=== PATIENT | male | born 1950 | race Caucasian/White ===

== ENCOUNTER 2017-11-27 10:40 | Emergency (ER) | payer OTHER ==
--- NOTE | 2017-11-27 11:04 | EDPHY ---
HPI/HX/ROS/PE/MDM Narrative: CHIEF COMPLAINT: Irregular heart rate HISTORY OF PRESENT ILLNESS: The patient is a 67 y/o male arriving at the referral of his doctor for possible irregular heart rate. On Thursday night he couldn't urinate and developed a fever. Symptoms felt like prior episodes of prostatitis so he went to his urologist for evaluation. He was diagnosed with a bladder infection and discharged on ciprofloxacin. His fever and urinary symptoms improved. He has not received urine culture results yet. He returned to his urologist for follow up today and his doctor noticed his pulse seemed irregular and sent him here for evaluation. The patient has not sensed palpitations, chest pain, dyspnea, or other symptoms apart from his UTI. He notes he had a normal stress test several years ago with Dr. Hinkle and skis and cycles vigorously regularly. He does note he had some difficulty catching his breath while skiing "30,000 feet" on Thursday. No fever, chills, chest pain, shortness of breath, palpitations, abdominal pain , nausea, vomiting, diarrhea, hematuria, headache, lightheadedness. REVIEW OF SYSTEMS: Aside from elements discussed in the HPI, a comprehensive 10-point review of systems was reviewed and is negative. 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 . VITAL SIGNS: Reviewed by me GENERAL: Well-developed, well-nourished, resting comfortably in no respiratory distress. HEENT: Atraumatic. Eyes: No icterus, no injection. Mouth: moist mucous membranes. No erythema or lesions. Neck: supple with no adenopathy. LUNGS: Clear to auscultation bilaterally, no wheezes, rhonchi or rales. CARDIAC: Irregular rate and rhythm, no rubs, murmurs or gallops. ABDOMEN: Soft, nontender, nondistended, bowel sounds normal. BACK: No CVA tenderness. EXTREMITIES: No trauma. No edema. Range of motion is normal throughout. NEURO: Alert and oriented, grossly nonfocal. SKIN: Warm and mildly diaphoretic on back, no rash. PSYCHIATRIC: Normal mentation, no agitation. Portions of this note were transcribed by a medical i d sales. I personally performed a history, physical exam, medical decision making, and confirmed accuracy of information the transcribed note. ED Course: This is a normally healthy 67 y/o male with recent diagnosis of UTI who presents for evaluation after his PCP noticed an irregular pulse at a follow-up visit today. The patient has not noticed palpitations, chest pain, dyspnea, or other cardiac symptoms. He has an irregular heart rate on exam, but is generally well-appearing. Plan for IV, labs, EKG, chest x-ray. 1L IV NS ordered. The 12 lead EKG was interpreted by myself. Sinus rhythm with PVCs and supraventricular complexes, rate 73. See hard copy and/or "tracemaster" electronic copy for interpretation. 1224: Consulted with Dr. Ford, cardiology. Dr. Hinkle will evaluate patient in the ED. Dr. Hinkle evaluated patient in the emergency department and reviewed the patient's labs and EKG. Patient and Dr. Hinkle have agreed a plan for outpatient Holter monitor and stress test with his office. Patient has been given exercise restrictions while on Cipro. Strict return precautions given. He is comfortable with plan for discharge and follow up. MDM: Differential diagnoses for the patient's irregular heart rate was considered including but not limited to multifocal atrial tachycardia, PACs, PVCs, SVT, atrial fibrillation, atrial flutter, anxiety, panic attack. - Data Points Imaging: I viewed and interpreted images myself Laboratory Results: Laboratory Results 11/27/17 11:07 11/27/17 11:07 Medications Given: Discontinued Medications Sodium Chloride (Ns) 1,000 mls @ 0 mls/hr IV EDNOW ONE; Wide Open PRN Reason: Protocol Stop: 11/27/17 11:13 Last Admin: 11/27/17 11:34 Dose: 1,000 mls General Time Seen by Provider: 11/27/17 10:51 Initial Vital Signs: Initial Vital Signs Temperature (C) 36.3 C 11/27/17 10:44 Heart Rate 104 H 11/27/17 10:44 Respiratory Rate 19 11/27/17 10:44 Blood Pressure 132/80 H 11/27/17 10:44 O2 Sat (%) 96 11/27/17 10:44 O2 Delivery Mode Room Air Allergies/Adverse Reactions: No Known Allergies Allergy (Unverified 03/18/11 20:01) Home Medications: Medication Instructions Recorded Levothyroxine Sodium [Synthroid] 25 mcg PO DAILY 03/18/11 Cipro 11/27/17 Hydrocodone/APAP 5/325 [[place] 1 - 2 tab PO Q4-6PRN PRN 11/27/17 5/325] Departure - Departure Disposition: Home, Routine, Self-Care Clinical Impression: PVC (premature ventricular contraction), Irregular heart rate Condition: Good Instructions: Urinary Tract Infection in Men (ED) Additional Instructions: Follow up with Dr. Hinkle for Holter monitor and stress test. Please call his office if you do not hear from his nurse today. Follow exercise restrictions provided while on ciprofloxacin. Return to the ED for any worsening of condition. Referrals: Inderjit Rodriguez MD [Primary Care Provider] - As per Instructions Hong Hinkle MD [Medical Doctor] - As per Instructions Report Scribed for: Any Reyes Report Scribed by: Nithya Rocha Date of Report: 11/27/17 Time of Report: 11:09
--- NOTE | 2017-11-27 11:09 | CPEKG ---
Heart Rate: 73 RR Interval: 822 P-R Interval: 232 QRSD Interval: 92 QT Interval: 424 QTC Interval: 468 P [place]: -1 QRS [place]: -6 T Wave [place]: 44 EKG Severity - ABNORMAL ECG - EKG Impression: SINUS RHYTHM EKG Impression: FIRST DEGREE AV BLOCK EKG Impression: ANTERIOR INFARCT, OLD Electronically Signed By: Any Reyes 27-Nov-2017 16:17:34
[2017-11-27] MEDS ORDERED: NS 1,000 ML IV ONE (11:12)
[2017-11-27 11:16] LABS: PLATELET COUNT 301 10^3/uL (150-400)
--- NOTE | 2017-11-27 13:07 | PDCONSULT ---
Material Cutter Note: Chief Complaint: Chest pain HPI: The patient is a 67-year-old male with a history of a PFO. Yakov was told to go to the ED by his urologist's office because of irregular beats seen on his EKG. Yakov was originally seen for urinary tract infection vs prostatitis. He returned to his urologist for follow up and was found to have an irregular rhythm. Yakov is very active, he cycles frequently and skies. He does note some dyspnea on exertion while skiing with his brother this past weekend. Yakov is otherwise asymptomatic from a cardiac standpoint. He denies palpitations, chest pain, rapid heart rate, near syncope or syncope. Past Medical History: Hypothyroidism, PFO, prostatitis Social History: . Lives in [place]. Cycles frequently. ROS 10 point review of systems is otherwise normal except as listed in HPI. Physical examination VS Blood pressure is 131/94 with heart rate of 86 BPM resp 16 o2 sat was 96% on room Air GEN: anxious alert cooperative HEENT: anicteric PERRL with EOMI Neck no lymphadenopathy or thyromegaly, no bruit carotid pulses normal Heart: Irregular rhythm, murmur present Lungs CTA bilaterally no wheeze rales or rhonchi Abd: Positive bowel sounds non distended not tender no rebound or guarding Ext cool dry wand well perfused no peripheral edema Labs: His urine cultures are pending. EKG: Inferior Q waves, poor R wave progression. Frequent PACs and PVCs. IMP/Plan: Yakov presented to the ED with irregular rhythm. His EKG shows inferior Q waves , poor R wave progression, frequent PACs and PVCs. I am not sure what to make of this since he is asymptomatic and appears to have a current UTI if not prostatitis. His troponin is normal and there is no acute ischemia or injury pattern. I think it is safe for him to be discharged. He is currently on Ciprofloxacin and his fever and urinary symptoms have improved. I would like the patient to have an outpatient nuclear stress test and a 24 hour Holter monitor because of his baseline EKG abnormalities. I would like him to have the stress test performed after his bladder infection has improved and he is no longer taking Cipro. I would like to see the patient in my office after he has had these tests completed. In addition, I would like the patient to have an echo because of his history of PFO.
[2017-11-27 14:04] VITALS: BP 133/81; PULSE 71; RESP 16; TEMP 98.6; O2SAT 93
== END 2017-11-27 14:05 | disposition home or self-care (01) ==
DX: I49.3 Ventricular premature depolarization (principal); E86.9 Volume depletion, unspecified

== ENCOUNTER 2018-12-25 00:17 | Observation (INO) | payer OTHER ==
--- NOTE | 2018-12-25 00:26 | EDPHY ---
H & P Stated Complaint: fever Time Seen by Provider: 12/25/18 00:26 HPI/ROS: HPI CHIEF COMPLAINT: Fever HISTORY OF PRESENT ILLNESS: This patient is a very pleasant 68-year-old male, denies significant medical history has had prostatitis, and feels like he may have the same. He started getting sick around late this afternoon around 4:00 p.m. With chills, rigors, dysuria. States T-max at home was 103. Complains of generalized weakness, nausea. Has had dry heaving. Denies chest pain or shortness of breath, denies productive cough, denies abdominal pain. Past Medical History: Prostatitis Past Surgical History: No recent surgical history Social History: Denies drugs alcohol tobacco. Family History: Noncontributory ROS REVIEW OF SYSTEMS: 10 Systems were reviewed and negative with the exception of the elements mentioned in the history of present illness. Exam Constitutional diaphoretic, nontoxic, triage nursing summary reviewed, vital signs reviewed, awake/alert. Eyes normal conjunctivae and sclera, EOMI, PERRLA. HENT normal inspection, atraumatic, moist mucus membranes, no epistaxis, neck supple/ no meningismus, no raccoon eyes. Respiratory clear to auscultation bilaterally, normal breath sounds, no respiratory distress, no wheezing. Cardiovascular rate normal, regular rhythm, no murmur, no edema, distal pulses normal. Gastrointestinal soft, non-tender, no rebound, no guarding, normal bowel sounds, no distension, no pulsatile mass. Genitourinary no CVA tenderness. Musculoskeletal no midline vertebral tenderness, full range of motion, no calf swelling, no tenderness of extremities, no meningismus, good pulses, neurovascularly intact. Skin pink, warm, & dry, no rash, skin atraumatic. Neurologic awake, alert and oriented x 3, AAOx3, moves all 4 extremities equally, motor intact, sensory intact, CN II-XII intact, normal cerebellar, normal vision, normal speech. Psychiatric normal mood/affect. Heme/Lymph/Immune no lymphadenopathy. Differential Diagnosis: Includes but is not limited to in a particular order dehydration, sepsis, bacteremia, UTI, prostatitis Medical Decision Making: Plan for this patient IV establishment IV fluid bolus , basic labs, blood cultures, lactic acid, chest x-ray, urine. Re-evaluate Re-evaluation: Source: Patient - Personal History Current Tetanus Diphtheria and Acellular Pertussis (TDAP): Yes - Medical/Surgical History Hx Asthma: No Hx Chronic Respiratory Disease: No Hx Diabetes: No Hx Cardiac Disease: No Hx Renal Disease: No Hx Cirrhosis: No Hx Alcoholism: No Hx HIV/AIDS: No Hx Splenectomy or Spleen Trauma: No Other PMH: Medical- Hypothyroid. Surgical- Hernia, knee scope - Social History Smoking Status: Never smoked Constitutional: Initial Vital Signs Temperature (C) 38 C 12/25/18 00:21 Heart Rate 114 H 12/25/18 00:21 Respiratory Rate 20 12/25/18 00:21 Blood Pressure 143/92 H 12/25/18 00:21 O2 Sat (%) 93 12/25/18 00:21 O2 Delivery Mode Room Air Allergies/Adverse Reactions: No Known Allergies Allergy (Unverified 12/25/18 00:20) Home Medications: Medication Instructions Recorded Aspirin EC [Aspirin EC 81 mg (*)] 81 mg PO DAILY 12/25/18 Levothyroxine [Synthroid 112 mcg 112 mcg PO DAILY06 12/25/18 (*)] Tamsulosin HCl [Flomax 0.4 MG (*)] 0.4 mg PO DAILY 12/25/18 Medical Decision Making - Data Points Laboratory Results: Laboratory Results 12/25/18 00:46 12/25/18 00:46 Microbiology Results: MICROBIOLOGY 12/25/18 00:55 Blood Blood Culture - Preliminary Gram Negative Jim 12/25/18 00:46 Blood Blood Culture - Preliminary Gram Negative Jim 12/25/18 00:46 Blood Blood Panel (PCR) - Final Escherichia Coli 12/25/18 01:40 Urine,Clean Catch Urine Culture - Preliminary Medications Given: Aspirin Buffered (Aspirin Ec) 81 mg PO DAILY SHIRAZ Stop: 06/23/19 13:14 Last Admin: 12/25/18 13:54 Dose: 81 mg Enoxaparin Sodium (Lovenox) 40 mg SC DAILY SHIRAZ Stop: 06/23/19 08:59 Last Admin: 12/25/18 13:53 Dose: 40 mg Levothyroxine Sodium (Synthroid) 112 mcg PO DAILY AT 6AM SHIRAZ Stop: 06/23/19 03:29 Last Admin: 12/25/18 13:48 Dose: Not Given Tamsulosin HCl (Flomax) 0.4 mg PO DAILY SHIRAZ Stop: 06/23/19 13:14 Last Admin: 12/25/18 13:54 Dose: 0.4 mg Discontinued Medications Sodium Chloride (Ns) 1,000 mls @ 0 mls/hr IV EDNOW ONE; Wide Open PRN Reason: Protocol Stop: 12/25/18 00:36 Last Admin: 12/25/18 00:44 Dose: 1,000 mls Sodium Chloride (Ns) 1,000 mls @ 0 mls/hr IV EDNOW ONE; Wide Open PRN Reason: Protocol Stop: 12/25/18 00:42 Last Admin: 12/25/18 00:45 Dose: 1,000 mls Ceftriaxone Sodium 2 gm/ (Sodium Chloride) 50 mls @ 100 mls/hr IV EDNOW ONE PRN Reason: Protocol Stop: 12/25/18 02:42 Last Admin: 12/25/18 02:33 Dose: 50 mls Point of Care Test Results: Chemistry 12/25/18 01:34 POC Troponin I 0.01 ng/mL ng/mL (0.00-0.08) Departure - Departure Disposition: [facility] Acute Clinical Impression: Prostatitis Qualifiers: Prostatitis type: acute Qualified Code(s): N41.0 - Acute prostatitis Fever Qualifiers: Fever type: due to other condition Qualified Code(s): R50.81 - Fever presenting with conditions classified elsewhere Condition: Fair
[2018-12-25] MEDS ORDERED: NS 1,000 ML IV ONE ×2 (00:35→00:41)
[2018-12-25 01:03] LABS: PLATELET COUNT 294 10^3/uL (150-400)
[2018-12-25 01:13] LABS: INR 1.08 (0.83-1.16); PROTIME(PATIENT) 13.6 SEC (12.0-15.0)
[2018-12-25] MEDS ORDERED: ACETAMINOPHEN 325 MG TAB PO PRN (02:17)
[2018-12-25] MEDS ORDERED: ONDANSETRON DISINTEGRATING 4 MG TAB PO PRN (02:17)
[2018-12-25] MEDS ORDERED: ONDANSETRON 4 MG/2 ML VIAL IVP PRN (02:17)
--- NOTE | 2018-12-25 02:36 | PDGENHP ---
History and Physical - Chief Complaint Dysuria, fever - History of Present Illness 68 yo M w/ hx of BPH presents with fever, dysuria, and hesitancy. His symptoms started acutely this afternoon so he came to the ED for evaluation. He has a hx of BPH and prostatitis in 2018. He presented with fever and tachycardia. His UA is suggestive of infection. He is being admitted for management of this. At the time of my evaluation his only complaint is continued urinary hesitancy. Case discussed with ED physician Dr. Villegas; records reviewed and summarized above. History Information - Allergies/Home Medication List Allergies/Adverse Reactions: No Known Allergies Allergy (Unverified 12/25/18 00:20) Home Medications: Levothyroxine Sodium [Synthroid] 25 mcg PO DAILY 03/18/11 [Last Taken Unknown] Flomax 12/25/18 [Last Taken Unknown] I have personally reviewed and updated: family history, medical history - Past Medical History Additional medical history: BPH - Surgical History Reports: no pertinent surgical hx - Family History Additional family history: Mother had Parkinson's disease - Social History Smoking Status: Never smoked Review of Systems Review of Systems: ROS: 10pt was reviewed & negative except for what was stated in HPI & below Physical Exam Physical Exam: Temp Pulse Resp BP Pulse Ox 37.6 C 76 18 117/76 92 12/25/18 02:00 12/25/18 02:00 12/25/18 02:00 12/25/18 02:00 12/25/18 02:00 Constitutional: no apparent distress, appears nourished Eyes: PERRL, EOMI Ears, Nose, Mouth, Throat: moist mucous membranes, no oral mucosal ulcers Cardiovascular: regular rate and rhythym, no murmur, rub, or gallop Respiratory: no respiratory distress, clear to auscultation Gastrointestinal: normoactive bowel sounds, soft, non-tender abdomen Skin: warm, normal color Musculoskeletal: full muscle strength, no muscle tenderness Neurologic: AAOx3, CN II-XII Intact Psychiatric: interacting appropriately, not anxious Lab Data & Imaging Review 12/25/18 00:46 12/25/18 00:46 WBC 9.73 10^3/uL (3.80-9.50) H 12/25/18 00:46 RBC 4.72 10^6/uL (4.40-6.38) 12/25/18 00:46 Hgb 14.7 g/dL (13.7-17.5) 12/25/18 00:46 Hct 43.0 % (40.0-51.0) 12/25/18 00:46 MCV 91.1 fL (81.5-99.8) 12/25/18 00:46 MCH 31.1 pg (27.9-34.1) 12/25/18 00:46 MCHC 34.2 g/dL (32.4-36.7) 12/25/18 00:46 RDW 14.0 % (11.5-15.2) 12/25/18 00:46 Plt Count 294 10^3/uL (150-400) 12/25/18 00:46 MPV 9.8 fL (8.7-11.7) 12/25/18 00:46 Neut % (Auto) 94.1 % (39.3-74.2) H 12/25/18 00:46 Lymph % (Auto) 4.2 % (15.0-45.0) L 12/25/18 00:46 [place] % (Auto) 1.2 % (4.5-13.0) L 12/25/18 00:46 Eos % (Auto) 0.1 % (0.6-7.6) L 12/25/18 00:46 Baso % (Auto) 0.2 % (0.3-1.7) L 12/25/18 00:46 Nucleat RBC Rel Count 0.0 % (0.0-0.2) 12/25/18 00:46 Absolute Neuts (auto) 9.16 10^3/uL (1.70-6.50) H 12/25/18 00:46 Absolute Lymphs (auto) 0.41 10^3/uL (1.00-3.00) L 12/25/18 00:46 Absolute Monos (auto) 0.12 10^3/uL (0.30-0.80) L 12/25/18 00:46 Absolute Eos (auto) 0.01 10^3/uL (0.03-0.40) L 12/25/18 00:46 Absolute Basos (auto) 0.02 10^3/uL (0.02-0.10) 12/25/18 00:46 Absolute Nucleated RBC 0.00 10^3/uL (0-0.01) 12/25/18 00:46 Immature Gran % 0.2 % (0.0-1.1) 12/25/18 00:46 Immature Gran # 0.02 10^3/uL (0.00-0.10) 12/25/18 00:46 RBC/WBC/PLT Morphology TNP 04 00:46 Platelet Estimate TNP 12/25/18 00:46 PT 13.6 SEC (12.0-15.0) 12/25/18 00:46 INR 1.08 (0.83-1.16) 12/25/18 00:46 APTT 25.5 SEC (23.0-38.0) 12/25/18 00:46 VBG Lactic Acid 1.5 mmol/L (0.7-2.1) 04 00:46 Sodium 141 mEq/L (135-145) 12/25/18 00:46 Potassium 4.2 mEq/L (3.5-5.2) 12/25/18 00:46 Chloride 108 mEq/L (97-110) 12/25/18 00:46 Carbon Dioxide 22 mEq/l (22-31) 12/25/18 00:46 Anion Gap 11 mEq/L (6-14) 12/25/18 00:46 BUN 23 mg/dL (7-23) 12/25/18 00:46 Creatinine 0.8 mg/dL (0.7-1.3) 04 00:46 Estimated GFR > 60 12/25/18 00:46 Glucose 109 mg/dL (70-100) H 12/25/18 00:46 Calcium 9.2 mg/dL (8.5-10.4) 12/25/18 00:46 Magnesium 1.7 mg/dL (1.6-2.3) 12/25/18 00:46 Total Bilirubin 1.3 mg/dL (0.1-1.4) 12/25/18 00:46 Conjugated Bilirubin 0.2 mg/dL (0.0-0.5) 12/25/18 00:46 Unconjugated Bilirubin 1.1 mg/dL (0.0-1.1) 12/25/18 00:46 AST 33 IU/L (17-59) 12/25/18 00:46 ALT 32 IU/L (21-72) 12/25/18 00:46 Alkaline Phosphatase 66 IU/L (38-126) 12/25/18 00:46 POC Troponin I 0.01 ng/mL (0.00-0.08) 12/25/18 01:34 Total Protein 6.7 g/dL (6.3-8.2) 12/25/18 00:46 Albumin 4.0 g/dL (3.5-5.0) 12/25/18 00:46 Urine Color SUSANNAH 12/25/18 01:40 Urine Appearance TURBID 12/25/18 01:40 Urine pH 6.0 (5.0-7.5) 12/25/18 01:40 Ur Specific [place] 1.023 (1.002-1.030) 12/25/18 01:40 Urine Protein 2+ (NEGATIVE) H 12/25/18 01:40 Urine Ketones TRACE (NEGATIVE) H 12/25/18 01:40 Urine Blood 3+ (NEGATIVE) H 12/25/18 01:40 Urine Nitrate POSITIVE (NEGATIVE) H 12/25/18 01:40 Urine Bilirubin NEGATIVE (NEGATIVE) 12/25/18 01:40 Urine Urobilinogen NEGATIVE EU (0.2-1.0) 12/25/18 01:40 Ur Leukocyte Esterase 3+ (NEGATIVE) H 12/25/18 01:40 Urine RBC 50-182 /hpf (0-3) H 12/25/18 01:40 Urine WBC 50-182 /hpf (0-3) H 12/25/18 01:40 Ur Epithelial Cells NONE SEEN /lpf (NONE-1+) 12/25/18 01:40 Urine Bacteria 2+ /hpf (NONE SEEN) H 12/25/18 01:40 Urine Mucus TRACE /lpf (NONE-1+) 12/25/18 01:40 Urine Glucose NEGATIVE (NEGATIVE) 12/25/18 01:40 Nasal Influenza A PCR NEGATIVE FOR FLU A (NEGATIVE) 12/25/18 00:46 Nasal Influenza B PCR NEGATIVE FOR FLU B (NEGATIVE) 12/25/18 00:46 Assessment & Plan Assessment: 68 yo M presents with sepsis 2/2 UTI. Plan: 1. Sepsis - 2/2 UTI; presents with 2/4 SIRS criteria (HR, T) on admission. He has a hx of BPH and prior prostatitis. Review of previous cultures data reveals contreras-sensitive E. Coli. - S/p 30 ml/kg fluid bolus - CTX IV - Blood and urine cultures pending 2. BPH - Continue Flomax. - Will need to monitor UOP to rule out acute retention Diet - Regular Code - Full Ppx - LMWH Dispo - Admit under observation status
[2018-12-25 05:02] LABS: PLATELET COUNT 286 10^3/uL (150-400)
[2018-12-25] MEDS: LEVOTHYROXINE 112 MCG TAB PO SCH ×2 (11:28→13:48)
--- NOTE | 2018-12-25 13:42 | HOSPPROG ---
Hospitalist Progress Note Assessment/Plan: 68 yo M w likely prostatitis h/o contreras sens ecoli continue ceftriaxone follow urinary retention restart meds Objective: Vital Signs Temp Pulse Resp BP Pulse Ox 36.4 C 66 16 124/74 H 95 12/25/18 08:43 12/25/18 08:43 12/25/18 08:43 12/25/18 08:43 12/25/18 08:43 Laboratory Results 12/25/18 04:45 12/25/18 04:45 12/24/18 12/25/18 12/26/18 05:59 05:59 05:59 Intake Total 250 Output Total 75 Balance 250 -75 PT 13.6 SEC (12.0-15.0) 12/25/18 00:46 INR 1.08 (0.83-1.16) 12/25/18 00:46 ICD10 Worksheet Patient Problems: Problems Problem Status Onset Prostatitis Acute PVC (premature ventricular contraction) Acute
--- NOTE | 2018-12-25 13:46 | ASMTCMCOM ---
CM Note CM Note Notes: Pt is a 68 y/o male who presented at the ED with fever, dysuria and hesitancy. He has been diagnosed with sepsis. 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 No PT/OT have been ordered. NO CM needs identified at this time, will follow for changes. D/C Plan: Anticipate independent. Date Signed: 12/25/2018 01:46 PM Electronically Signed By:Meg Deleon
[2018-12-25] MEDS: ENOXAPARIN 40 MG/0.4 ML SYR SC SCH (13:53)
[2018-12-25] MEDS: TAMSULOSIN HCL 0.4 MG CAP PO SCH (13:54)
[2018-12-25] MEDS: ASPIRIN EC 81 MG TAB PO SCH (13:54)
[2018-12-26] MEDS: LEVOTHYROXINE 112 MCG TAB PO SCH (05:54)
[2018-12-26 08:04] VITALS: BP 150/80
[2018-12-26] MEDS: ASPIRIN EC 81 MG TAB PO SCH (08:17)
[2018-12-26] MEDS: TAMSULOSIN HCL 0.4 MG CAP PO SCH (08:17)
--- NOTE | 2018-12-26 10:22 | HOSPPROG ---
Hospitalist Progress Note Assessment/Plan: 68 yo M w likely prostatitis h/o contreras sens ecoli improved today 2 weeks cipro bacteremia noted we reviewed indications to return for longterm today, > 30 minutes urology follow up Subjective: feels well. afebrile. anxious for dc Objective: Vital Signs Temp Pulse Resp BP Pulse Ox 36.8 C 72 16 150/80 H 96 12/26/18 08:00 12/26/18 08:00 12/26/18 08:00 12/26/18 08:00 12/26/18 08:00 Laboratory Results 12/25/18 04:45 12/25/18 04:45 12/25/18 12/26/18 12/27/18 05:59 05:59 05:59 Intake Total 250 1100 200 Output Total 75 Balance 250 1025 200 PT 13.6 SEC (12.0-15.0) 12/25/18 00:46 INR 1.08 (0.83-1.16) 12/25/18 00:46 - Physical Exam Constitutional: no apparent distress, appears nourished Eyes: PERRL, anicteric sclera, EOMI Ears, Nose, Mouth, Throat: moist mucous membranes, hearing normal Cardiovascular: regular rate and rhythym, no murmur, rub, or gallop Respiratory: no respiratory distress, no rales or rhonchi Gastrointestinal: normoactive bowel sounds, soft, non-tender abdomen Genitourinary: no bladder fullness, No de in urethra Skin: warm, normal color Musculoskeletal: full muscle strength Neurologic: AAOx3 ICD10 Worksheet Patient Problems: Problems Problem Status Onset Fever Acute Prostatitis Acute PVC (premature ventricular contraction) Acute
[2018-12-26] MEDS: ENOXAPARIN 40 MG/0.4 ML SYR SC SCH (10:45)
--- NOTE | 2018-12-26 10:58 | ASDISCHSUM ---
Discharge Information Plan Status:Home with No Needs Medically Cleared to Leave:12/26/2018 Discharge Date:12/26/2018 CM D/C Disposition:Home, Routine, Self-Care ADT D/C Disposition: Projected Discharge Date:12/26/2018 Transportation at D/C: Discharge Delay Reason: Follow-Up Date:12/26/2018 Discharge Slot: Final Diagnosis: Placement Information Patient Contact Information Contact Name:ELVIS Relationship: Address:[address] [place] [address] City:[facility] Phone: State/Zip Code:[place] [address] Email: Financial Information Financial Class:Medicare Advantage Plans Primary Plan Desc:[employer] MED[employer] Primary Plan Number:[id number] Secondary Plan Desc: Secondary Plan Number: Assessment Information LACE LACE Length of stay for Answers: 1 day current admission # of Emergency department Answers: 1-2 visits in the last 6 months Score: 2 Date Signed: 12/26/2018 10:57 AM Electronically Signed By:Shilpa Buck RN [facility] CM Progress Note CM Note CM Note Notes: Pt is a 68 y/o male who presented at the ED with fever, dysuria and hesitancy. He has been diagnosed with sepsis. 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 No PT/OT have been ordered. NO CM needs identified at this time, will follow for changes. D/C Plan: Anticipate independent. Date Signed: 12/25/2018 01:46 PM Electronically Signed By:Meg Deleon Intervention Information
--- NOTE | 2018-12-26 10:59 | ASMTDCNOTE ---
Case Management Discharge Discharge Order Complete? Answers: Yes Patient to Obtain Answers: via Family Medications Transportation Arranged Answers: Family/Friends Family Notified Answers: Yes Discharge Comments Notes: Medically cleared for independent discharge to home. CM available should other needs arise. Date Signed: 12/26/2018 10:59 AM Electronically Signed By:Shilpa Buck RN
--- NOTE | 2018-12-26 15:54 | GDS ---
[f rep st] DISCHARGE SUMMARY DISCHARGE DIAGNOSES: 1. Prostatitis. 2. Escherichia coli bacteremia. Please see admission history and physical by Dr. Sammy Howard. Patient presented with fever, chills, and urinary hesitancy. He has a history of prostatitis and the se symptoms felt awfully similar to that. He was started on ceftriaxone. Blood cultures grew out E coli. He was afebrile while here. He did not have sepsis. The lactate was 1.5. He was febrile on presentation, but subsequently resolved. Eloy wiggins was admitted early in the morning at 2 a.m. on the and on the morning of the , the patient w as feeling well and anxious for discharge. He is amenable to taking ciprofloxacin as an outpatient w hich I prescribed for him. We reviewed the reasons to come back to the hospital for further care inc luding fever, confusion, inability to urinate. I advised outpatient followup with Dr. Esequiel Branham. /[id number]/MODL
== END 2018-12-26 11:32 | disposition home or self-care (01) ==
LOC: F3N 03:11
PROVIDERS: ADMIT Student in an Organized Health Care Education/Training Program; ATTEND Internal Medicine
DX: N41.0 Acute prostatitis (principal); E86.9 Volume depletion, unspecified; R78.81 Bacteremia; B96.20 Unspecified Escherichia coli [E. coli] as the cause of diseases classified elsewhere; N40.0 Benign prostatic hyperplasia without lower urinary tract symptoms; E03.9 Hypothyroidism, unspecified
CPT/HCPCS: 71045; 96361; 96365; 96372; 99285; G0378; J0696; J1650; 84484-ER